=== PATIENT | female | born 1965 | race African-American/Black ===

== ENCOUNTER → 2017-08-14 | Outpatient (CLI) | payer OTHER ==
[~2017-08-14] MED LIST: LISINOPRIL-HCT1 EAC2 PO; LISINOPRIL20 MG PO
== END ==
LOC: RAD 01:49
DX: Z12.31 Encounter for screening mammogram for malignant neoplasm of breast (principal)

== ENCOUNTER → 2017-08-21 | Outpatient (CLI) | payer OTHER | LOC: RAD 10:36 | DX: N63.20 Unspecified lump in the left breast, unspecified quadrant (principal); R92.8 Other abnormal and inconclusive findings on diagnostic imaging of breast ==

== ENCOUNTER → 2018-06-18 | Outpatient (CLI) | payer BC, OTHER | LOC: RAD 08:10 | DX: R92.2 Inconclusive mammogram (principal) ==

== ENCOUNTER → 2018-10-15 | Outpatient (CLI) | payer BC, OTHER | LOC: RAD 00:40 | DX: Z12.31 Encounter for screening mammogram for malignant neoplasm of breast (principal) ==